=== PATIENT | female | born 1980 | race Caucasian/White ===

== ENCOUNTER 2024-04-07 12:07 | Emergency (ER) | payer SELFPAY ==
[2024-04-07 12:23] VITALS: BP 115/95
--- NOTE | 2024-04-07 12:56 | EDRN ---
Dr. Tapia in room w/ pt.
[2024-04-07 13:04] VITALS: BMI 31.4
[2024-04-07 13:12] VITALS: BP 116/67
--- NOTE | 2024-04-07 13:14 | EDRN ---
Pt requesting something to 'calm her nerves a bit.'
[2024-04-07] MEDS: MOTRIN 600 MG PO (13:21)
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
--- NOTE | 2024-04-07 14:10 | EDRN ---
Pt is awaiting [facility] rep and SANE nurse at this time.
--- NOTE | 2024-04-07 14:17 | EDRN ---
Sasha Jerez from [facility] met and spoke briefly w/ pt prior to her going to [facility].
[2024-04-07 14:55] VITALS: BP 129/63
--- NOTE | 2024-04-07 15:12 | EDRN ---
SANE nurse given lazaro, sheet of labels, face sheet on pt, and med list. SANE nurse was informed about unknown tetanus status as well.
--- NOTE | 2024-04-07 16:32 | EDRN ---
[facility] nurse in room examining pt at this time.
--- NOTE | 2024-04-07 17:41 | EDRN ---
[facility] nurse remains in room w/pt. Pt requesting klonopin again. Pt states she takes 1 mg tid as needed.
--- NOTE | 2024-04-07 18:00 | EDRN ---
Pt again requested Klonopin when I was in the room saying she usually takes a 1 mg tab tid. This RN requested a dose for pt from Dr. Mario who is now taking care of pt.
--- NOTE | 2024-04-07 18:21 | EDRN ---
Klonopin not administered as pt was sleeping at this time.
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
--- NOTE | 2024-04-07 18:33 | EDRN ---
Pt now awake and voiding for urine spec in BR.
[2024-04-07] MEDS: KLONOPIN 0.5 MG PO (18:38)
[2024-04-07 18:50] VITALS: BP 143/105
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
--- NOTE | 2024-04-07 19:12 | EDRN ---
Pt is wishing to leave and asking for STD med at this time. Simeon BRANHAM informed at this time.
--- NOTE | 2024-04-07 19:14 | EDRN ---
[facility] nurse is still in room w/ pt finishing up paperwork.
[2024-04-07] MEDS: ROCEPHIN 1.4286 MG IM (20:18)
[2024-04-07] MEDS: VIBRAMYCIN 100 MG PO (20:18)
[2024-04-07] MEDS: PLAN B ONE-STEP, NEXT CHOICE 1 TABLET PO (20:18)
[2024-04-07 20:28] VITALS: BP 157/106
== END 2024-04-07 20:39 | disposition home or self-care (01) ==
LOC: EMR 12:07
PROVIDERS: EMERGENCY PHYSICIAN Student in an Organized Health Care Education/Training Program
DX: T76.21XA Adult sexual abuse, suspected, initial encounter (principal); M23.91 Unspecified internal derangement of right knee; Y92.9 Unspecified place or not applicable; J44.89 Other specified chronic obstructive pulmonary disease; K21.9 Gastro-esophageal reflux disease without esophagitis; I10 Essential (primary) hypertension; R56.9 Unspecified convulsions; F31.9 Bipolar disorder, unspecified; F41.9 Anxiety disorder, unspecified; F42.9 Obsessive-compulsive disorder, unspecified; F43.10 Post-traumatic stress disorder, unspecified; G47.30 Sleep apnea, unspecified; G89.29 Other chronic pain; M17.11 Unilateral primary osteoarthritis, right knee; F17.200 Nicotine dependence, unspecified, uncomplicated; Z87.440 Personal history of urinary (tract) infections
CPT/HCPCS: 99283; 96372; 73564; 87491; 87591

== ENCOUNTER 2024-05-11 17:05 | Emergency (ER) | payer MEDICARE, OTHER, SELFPAY ==
[2024-05-11] VITALS (7 sets, daily range): BP systolic 114–144; BP diastolic 64–116
[2024-05-11] MEDS: TYLENOL 650 MG PO (17:54)
[2024-05-11 18:11] LABS: % Basophils 0.3 % (0-2); % Eosinophils 2.2 % (0-6); % Immature Granulocytes 0.3 % (0-0.5); % Lymphocytes 22.7 % (20.5-51.1); % Monocytes 7.8 % (1.7-9.3); % Neutrophils 66.7 % (42.2-75.2); Absolute Eosinophils 0.1 10^3/uL (0-0.7); Absolute Lymphocytes 1.4 10^3/uL (1.2-3.4); Absolute Monocytes 0.5 10^3/uL (0.1-0.6); Absolute Neutrophils 4.2 10^3/uL (1.4-6.5); Hematocrit 35.8 % (37.0-47.0); Mean Corp Hgb Conc. 33.5 g/dL (33.0-37.0); Mean Corpuscular Hgb 26.5 pg (27.0-31.0); Mean Corpuscular Volume 79.2 fL (81.0-99.0); Mean Platelet Volume 10.3 fL (7.4-10.4); Nucleated Red Blood Cells % 0 %; Platelet Count 394 10^3/uL (130-400); Red Blood Cell Count 4.52 10^6/uL (4.20-5.40); Red Cell Dist. Width 14.5 % (11.5-14.5); White Blood Cell Count 6.3 10^3/uL (4.8-10.8)
[2024-05-11 18:21] LABS: ALT (SGPT) 22 U/L (0-35); AST (SGOT) 24 U/L (14-36); Albumin 4.2 g/dl (3.5-5.0); Alkaline Phosphatase 70 U/L (38-126); Blood Urea Nitrogen 20 mg/dl (7-17); Calcium 9.3 mg/dl (8.4-10.2); Carbon Dioxide 27 mmol/L (22-30); Chloride 106 mmol/L (98-107); Estimated Creatinine Clearance 108 ml/min; Glucose 109 mg/dl (70-99); Potassium 3.9 mmol/L (3.5-5.1); Sodium 144 mmol/L (135-145); Total Bilirubin 0.3 mg/dl (0.2-1.3); Total Protein 7.1 g/dl (6.3-8.2); eGFR > 60.00
[2024-05-11 18:22] LABS: INR 0.96; PT 13.2 Sec (11.4-14.6)
[2024-05-11 18:23] LABS: APTT 33.1 Sec (23.4-35.0); COVID-19 Antigen Negative (Negative)
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
== END 2024-05-11 20:10 | disposition home or self-care (01) ==
LOC: EMR 17:05
PROVIDERS: Physician Assistant; EMERGENCY PHYSICIAN Emergency Medicine
DX: R04.0 Epistaxis (principal); R51.9 Headache, unspecified; G89.29 Other chronic pain; I10 Essential (primary) hypertension; J44.89 Other specified chronic obstructive pulmonary disease; F17.200 Nicotine dependence, unspecified, uncomplicated; G47.30 Sleep apnea, unspecified; Z87.820 Personal history of traumatic brain injury
CPT/HCPCS: 99285; 71046; 80053; 85025; 85610; 85730; 87811; 93005